=== PATIENT | female | born 1995 | race Caucasian/White ===

== ENCOUNTER 2017-01-01 08:59 | Emergency (ER) | payer BC, OTHER ==
[2017-01-01 10:49] LABS: HEMOGLOBIN 13.4 gm/dl (12.3-15.3); RED BLOOD COUNT 4.55 M/UL (4.00-5.10); WHITE BLOOD COUNT 10.1 K/UL (4.5-11.0)
[2017-01-01 11:17] LABS: BUN/CREATININE RATIO 15 (0-10)
== END 2017-01-01 14:00 | disposition home or self-care (01) ==
LOC: ER1 08:59
PROVIDERS: Family Medicine
DX: O99.89 Other specified diseases and conditions complicating pregnancy, childbirth and the puerperium (principal); R55 Syncope and collapse; Z3A.08 8 weeks gestation of pregnancy
CPT/HCPCS: 76817; 80053; 82550; 82553; 83874; 84484; 84702; 85025; 85379; 93005; 99284; J7120

== ENCOUNTER 2017-01-17 18:08 | Emergency (ER) | payer BC, OTHER | END 2017-01-17 21:45 | disposition left against medical advice (07) | LOC: ER1 18:08 | DX: O26.859 Spotting complicating pregnancy, unspecified trimester (principal); Z53.21 Procedure and treatment not carried out due to patient leaving prior to being seen by health care provider | CPT/HCPCS: 81001; 87086 ==

== ENCOUNTER 2017-02-17 14:14 | Emergency (ER) | payer BC, OTHER ==
[2017-02-17 16:15] LABS: HEMOGLOBIN 13.5 gm/dl (12.3-15.3); RED BLOOD COUNT 4.43 M/UL (4.00-5.10); WHITE BLOOD COUNT 7.2 K/UL (4.5-11.0)
[2017-02-17 16:36] LABS: BUN/CREATININE RATIO 12 (0-10)
== END 2017-02-17 17:15 | disposition left against medical advice (07) ==
LOC: ER1 14:14
PROVIDERS: Student in an Organized Health Care Education/Training Program
DX: O99.89 Other specified diseases and conditions complicating pregnancy, childbirth and the puerperium (principal); R55 Syncope and collapse; R06.02 Shortness of breath; R07.1 Chest pain on breathing; R42 Dizziness and giddiness; Z3A.15 15 weeks gestation of pregnancy
CPT/HCPCS: 36415; 71010; 80053; 82550; 82553; 83874; 84484; 85025; 85379; 93005; 99285

== ENCOUNTER 2017-04-17 01:26 | Outpatient (CLI) | payer BC, OTHER | END 2017-04-17 02:40 | disposition home or self-care (01) | LOC: GENOP 01:26 | DX: O36.8120 Decreased fetal movements, second trimester, not applicable or unspecified (principal); O99.89 Other specified diseases and conditions complicating pregnancy, childbirth and the puerperium; R51 Headache; R42 Dizziness and giddiness; R11.0 Nausea; Z3A.23 23 weeks gestation of pregnancy | CPT/HCPCS: G0463 ==

== ENCOUNTER 2017-07-12 18:01 | Outpatient (CLI) | payer BC, OTHER | END 2017-07-12 19:55 | disposition home or self-care (01) | LOC: GENOP 18:01 | DX: O36.8130 Decreased fetal movements, third trimester, not applicable or unspecified (principal); O99.89 Other specified diseases and conditions complicating pregnancy, childbirth and the puerperium; R10.9 Unspecified abdominal pain; Z3A.35 35 weeks gestation of pregnancy | CPT/HCPCS: 81001; 83518; G0463 ==

== ENCOUNTER 2021-04-11 22:52 | Emergency (ER) | payer OTHER ==
[~2021-04-11] VITALS: Ht 170.2 cm; Wt 104.3 kg
[~2021-04-11 22:52] MED LIST: BENTYL 20MG TAB20 MG PO; LOPRESSOR 25 MG25 MG PO; TAPAZOLE10 MG PO; ZOFRAN ODT 4 MG4 MG PO; ZOFRAN ODT 4 MG4 MG SL; ZOFRAN4 MG PO
[2021-04-11 23:48] LABS: HEMOGLOBIN 13.7 gm/dl (12.3-15.3); RED BLOOD COUNT 4.64 M/UL (4.00-5.10); WHITE BLOOD COUNT 7.7 K/UL (4.5-11.0)
== END 2021-04-12 10:22 | disposition home or self-care (01) ==
LOC: ER1 22:52 → CDU 04-12 03:07
PROVIDERS: Emergency Medicine
DX: K52.9 Noninfective gastroenteritis and colitis, unspecified (principal); E89.0 Postprocedural hypothyroidism; E05.00 Thyrotoxicosis with diffuse goiter without thyrotoxic crisis or storm; Z20.822 Contact with and (suspected) exposure to COVID-19; Z79.899 Other long term (current) drug therapy; Z90.49 Acquired absence of other specified parts of digestive tract
CPT/HCPCS: 0240U; 80053; 81001; 83690; 84703; 85025; 99285; J2270; J2405; Q9967